=== PATIENT | female | born 1925 | race African-American/Black ===

== ENCOUNTER 2017-01-12 04:28 | Emergency (ER) | payer MEDICARE, SELFPAY ==
[2017-01-12 05:33] LABS: ALT (SGPT) 22 U/L (8-55); AST (SGOT) 20 U/L (5-34); Albumin 3.4 g/dL (3.4-4.8); Alkaline Phosphatase 162 U/L (40-150); Anion Gap 17 mmol/L (10-20); BUN (Urea Nitrogen) 42 mg/dL (9.8-20.1); Bilirubin, Total 0.5 mg/dL (0.2-1.2); Calc. Creatinine Clearance 0 mL/min (70-130); Calcium 9.6 mg/dL (7.8-10.44); Carbon Dioxide 20 mmol/L (23-31); Chloride 118 mmol/L (98-107); Estimated GFR-MDRD 51; Globulin 3.5 g/dL (2.4-3.5); Glucose 121 mg/dL (83-110); Potassium 3.6 mmol/L (3.5-5.1); Protein, Total 6.9 g/dL (6.0-8.3); Sodium 151 mmol/L (136-145)
[2017-01-12 05:34] LABS: Band 15 % (5-11); Eosinophils 3 % (0-10); Hypochromia SLIGHT = 6-15 cells (100X) (0-5/hpf); Lymphocytes 12 % (21-51); MDiff Complete? YES; Monocytes 3 % (0-10); Neutrophil 67 % (42-75); PLT Morphology Comment Appears Adequate
[2017-01-12 05:35] LABS: Hemoglobin 13.8 g/dL (12.0-16.0); Mean Corpuscular HGB CONC 32.2 g/dL (32.0-36.0); Mean Corpuscular Hemoglobin 30.2 pg (27.0-31.0); Mean Corpuscular Volume 93.8 fl (81.0-99.0); Mean Platelet Volume 9.7 fL (7.4-10.4); Platelet Count 226 thou/uL (130-400); Red Blood Cell (RBC) Count 4.58 mill/uL (4.20-5.40); White Blood Cell (WBC) Count 8.2 thou/uL (4.8-10.8)
[2017-01-12 06:15] LABS: Lipase Less than 4 U/L (8-78)
[2017-01-12 06:25] LABS: Bilirubin Negative (Negative); Blood, Urine Moderate (Negative); Clarity Cloudy (Clear); Glucose, Urine (Dipstick) Negative (Negative); Leukocyte Large (Negative); Nitrite Positive (Negative); Protein, Urine (Dipstick) Trace mg/dL (Neg-Trace); Urobilinogen 0.2 mg/dL (0.2-1.0)
[2017-01-12 06:26] LABS: Bacteria/HPF 2+ HPF (None Seen); Squamous Epithelial 0-3 HPF (0-3)
[2017-01-12] MEDS ORDERED: cefTRIAXone\\ROCEPHIN 1 GM VIAL ONE (06:41)
[2017-01-12] MEDS ORDERED: Sodium Chloride 0.9% 1,000 ML BAG ONE (07:45)
[2017-01-12] MEDS ORDERED: Sodium Chloride 0.9% 100 ML BAG ONE (07:45)
--- NOTE | 2017-01-12 08:00 | RAD ---
AP VIEW CHEST: INDICATIONS: Altered mental status. COMPARISON: Prior exam dated 08/06/2012. FINDINGS: There is mild cardiomegaly with mild to moderate pulmonary vascular congestion. No pleural effusion or pneumothorax is evident. No acute osseous abnormality is evident. There is moderate to severe glenohumeral joint osteoarthrosis bilaterally, right greater than left. IMPRESSION: Mild cardiomegaly with mild pulmonary vascular congestion. POS: [facility]
== END 2017-01-12 08:45 ==
LOC: MADERS 04:28
DX: E87.1 Hypo-osmolality and hyponatremia (principal); E86.0 Dehydration; N39.0 Urinary tract infection, site not specified; E78.5 Hyperlipidemia, unspecified
CPT/HCPCS: 36415; 51702; 71010; 80053; 81001; 83605; 83690; 85025; 86140; 87040; 87077; 87086; 87186; 96365; J0696; J7050